=== PATIENT | male | born 1980 | race Two or more races ===

== ENCOUNTER 2017-02-03 11:30 | Emergency (ER) | payer SELFPAY ==
[2017-02-03 11:35] VITALS: BP 141/71; TEMP 98; BMI 25.8
--- NOTE | 2017-02-03 12:29 | PDOC ---
History of Present Illness - General Chief Complaint: Respiratory Stated Complaint: FEVER, CHILLS Time Seen by Provider: 02/03/17 11:47 History Source: Patient - History of Present Illness Timing/Duration: reports: other Associated Symptoms: reports: fever/chills, headache, muscle aches. denies: chest pain/soreness, cough, earache, facial pain, lightheadedness, nasal congestion, nasal drainage, shortness of breath, sore throat Past History - Past Medical History Allergies/Adverse Reactions: Allergies Allergy/AdvReac Type Severity Reaction Status Date / Time No Known Allergies Allergy Verified 02/03/17 11:31 Home Medications: Ambulatory Orders NK [No Known Home Medication] 02/03/17 Other medical history: NONE - Psycho/Social/Smoking Cessation Hx Anxiety: No Suicidal Ideation: No Smoking History: Never smoked Have you smoked in the past 12 months: Yes Number of Cigarettes Smoked Daily: 8 Information on smoking cessation initiated: Yes Hx Alcohol Use: No Drug/Substance Use Hx: No Substance Use Type: Marijuana Review of Systems - Review of Systems Constitutional: Yes: Fever HEENTM: No: Ear Pain, Throat Pain Respiratory: No: Cough, Shortness of Breath Cardiac (ROS): No: Chest Pain ABD/GI: No: Diarrhea, Nausea, Vomiting *Physical Exam - Vital Signs Last Vital Signs Temp Pulse Resp BP Pulse Ox 98.0 F 116 H 18 141/71 100 02/03/17 11:33 02/03/17 11:33 02/03/17 11:33 02/03/17 11:33 02/03/17 11:33 - Physical Exam General Appearance: Yes: Appropriately Dressed. No: Apparent Distress HEENT: positive: Normal ENT Inspection, Normal Voice, TMs Normal, Pharynx Normal. negative: Scleral Icterus (R), Scleral Icterus (L) Neck: positive: Supple Respiratory/Chest: positive: Lungs Clear, Normal Breath Sounds. negative: Respiratory Distress Cardiovascular: positive: Regular Rate, S1, S2 Gastrointestinal/Abdominal: positive: Soft. negative: Tender Integumentary: positive: Dry, Warm Neurologic: positive: Fully Oriented, Alert, Normal Mood/Affect Medical Decision Making - Medical Decision Making 02/03/17 12:25 36-year-old male, no significant history, here with fever, malaise and body aches 3 days. States highest temperature 101. Has been taking Tylenol with some improvement. Denies sore throat, cough, ear pain, nausea, vomiting or diarrhea. No sick contacts or recent travel See exam Viral syndrome Well appearing but tachy at 116 at triage, improve to 100 on rpt without intervention, rest of exam unremarkable -dc w/ supportive tx 02/03/17 12:28 02/03/17 12:55 *DC/Admit/Observation/Transfer Diagnosis at time of Disposition: Viral syndrome - Discharge Dispostion Disposition: HOME Condition at time of disposition: Good - Patient Instructions Printed Discharge Instructions: DI for Viral Syndrome Additional Instructions: Your exam did not show any infection at this time. Your symptoms are most likely viral. Rest, maintain adequate hydration and take Motrin or Tylenol as needed for pain and/or fever Return for worsening of symptoms - Post Discharge Activity Work/School Note: Back to Work
[2017-02-03 12:37] VITALS: PULSE 100
== END 2017-02-03 12:45 | disposition home or self-care (01) ==
LOC: JERFT 11:30
DX: B34.9 Viral infection, unspecified (principal)
CPT/HCPCS: 99281-25

== ENCOUNTER 2017-04-11 01:34 | Emergency (ER) | payer SELFPAY ==
[2017-04-11 01:49] VITALS: BP 141/84; PULSE 98; TEMP 97.1; BMI 25.8
[2017-04-11] MEDS ORDERED: diazePAM 5 MG TABLET PO ONE (01:53)
[2017-04-11] MEDS ORDERED: KETOROLAC TROMETHAMINE 60 MG/2 ML VIAL IM ONE (01:53)
--- NOTE | 2017-04-11 01:58 | PDOC ---
History of Present Illness - General Chief Complaint: Pain, Acute Stated Complaint: PAIN IN NECK Time Seen by Provider: 04/11/17 01:39 - History of Present Illness Initial Comments: 04/11/17 01:52 CHIEF COMPLAINT: neck pain HISTORY OF PRESENT ILLNESS: 36 yo M with no PMH presents to ED with neck pain x "a couple days." Patient reports that he woke up the other day with "a stiff neck, I think I slept on it wrong or something" and it has not improved. He denies any back pain and states that it is mostly on the left side of his neck and L shoulder. No recent travel or sick contacts. PAST MEDICAL HISTORY: Denies past medical history FAMILY HISTORY: Denies SOCIAL HISTORY: Current smoker, 5 cigarettes daily. Marijuana use "once every 3 days." Alcohol use: 1-2 beers "every 3 days or so." SURGICAL HISTORY: Denies ALLERGIES: No known drug allergies REVIEW OF SYSTEMS General/Constitutional: Denies fever or chills. HEENT: Denies change in vision. Denies ear pain or discharge. Cardiovascular: Denies chest pain or shortness of breath. Musculoskeletal: Left neck and shoulder pain. Denies neck pain. Skin and breasts: Denies rash or easy bruising. Neurologic: Denies headache, vertigo, loss of consciousness, or loss of sensation. PHYSICAL EXAM General Appearance: Well-appearing, appropriately dressed. No apparent distress. HEENT: EOMI, PERRLA, normal ENT inspection, normal voice, TMs normal, pharynx normal. No conjunctival pallor. No photophobia, scleral icterus. Neck: Tenderness to left neck and shoulder, full ROM. Supple. Trachea midline. No rigidity, carotid bruit, stridor, lymphadenopathy, or thyromegaly. Respiratory/Chest: Lungs CTAB. Cardiovascular: RRR. S1, S2. Vascular Pulses: Dorsalis-Pedis (R): 2+, Dorsalis-Pedis (L): 2+ Gastrointestinal/Abdominal: Normal bowel sounds. Abdomen soft, non-distended. No tenderness or rebound tenderness. No organomegaly, pulsatile mass, guarding , hernia, hepatomegaly, splenomegaly. Lymphatic: No adenopathy, tenderness. Musculoskeletal/Extremities: Normal inspection. FROM of all extremities, normal capillary refill. Pelvis Stable. No CVA tenderness. No tenderness to extremities, pedal edema, swelling, erythema or deformity. Integumentary: Appropriate color, dry, warm. 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 Fully oriented, alert. Appropriate mood/affect. Motor strength 5/5. No appreciable EOM palsy, facial droop or sensory deficit. 04/11/17 01:54 04/11/17 02:28 Past History - Past Medical History Allergies/Adverse Reactions: Allergies Allergy/AdvReac Type Severity Reaction Status Date / Time No Known Allergies Allergy Verified 04/11/17 01:47 Home Medications: Ambulatory Orders Diazepam [Valium] 5 mg PO HS PRN #5 tablet MDD 1 04/11/17 Naproxen 250 mg PO BID #14 tablet 04/11/17 - Immunization History Immunization Up to Date: Yes - Psycho/Social/Smoking Cessation Hx Anxiety: No Suicidal Ideation: No Smoking History: Current every day smoker Have you smoked in the past 12 months: Yes Number of Cigarettes Smoked Daily: 5 Information on smoking cessation initiated: No Hx Alcohol Use: No Drug/Substance Use Hx: No Substance Use Type: None *Physical Exam - Vital Signs Last Vital Signs Temp Pulse Resp BP Pulse Ox 97.1 F L 98 H 20 141/84 99 04/11/17 01:47 04/11/17 01:47 04/11/17 01:47 04/11/17 01:47 04/11/17 01:47 Medical Decision Making - Medical Decision Making 04/11/17 01:56 36 yo M with no PMH presents to ED with neck pain x "a couple days." Reproducible tenderness to L shoulder. Likely MSK in nature. -60 mg IM Toradol -5 mg Valium - patient states that a friend drove him here so he will not be driving home *DC/Admit/Observation/Transfer Diagnosis at time of Disposition: Muscle spasms of neck - Discharge Dispostion Disposition: HOME Condition at time of disposition: Stable Admit: No - Prescriptions Prescriptions: Naproxen 250 mg PO BID #14 tablet Diazepam [Valium] 5 mg PO HS PRN #5 tablet MDD 1 PRN Reason: Muscle Spasms - Referrals Referrals: Imtiaz Matson MD [Staff Physician] - - Patient Instructions Printed Discharge Instructions: DI for Neck Pain Additional Instructions: Please take medications as prescribed. If your pain continues past 3-4 days, please follow up with orthopedics. If you experience any severe headache, palpitations, chest pain, blurry vision, loss of sensation to your extremities, difficulty speaking/swallowing/walking, or any new or worsening symptoms, please return to the ER. - Post Discharge Activity Work/School Note: Back to Work
[2017-04-11] MEDS ORDERED: diazePAM 5 MG TABLET ONE (02:00)
[2017-04-11] MEDS ORDERED: KETOROLAC TROMETHAMINE 60 MG/2 ML VIAL ONE (02:00)
--- NOTE | 2017-04-11 02:33 | PDOC ---
*Physical Exam - Vital Signs Last Vital Signs Temp Pulse Resp BP Pulse Ox 97.1 F L 98 H 20 141/84 99 04/11/17 01:47 04/11/17 01:47 04/11/17 01:47 04/11/17 01:47 04/11/17 01:47 ED Treatment Course - Medications Given in the ED: ED Medications Discontinued Medications Generic Name Dose Route Start Last Admin Trade Name Freq PRN Reason Stop Dose Admin Diazepam 5 mg 04/11/17 01:53 04/11/17 02:03 Valium - PO 04/11/17 01:54 5 mg ONCE ONE Administration Ketorolac Tromethamine 60 mg 04/11/17 01:53 04/11/17 02:03 Toradol Injection - IM 04/11/17 01:54 60 mg ONCE ONE Administration Medical Decision Making - Medical Decision Making 04/11/17 02:32 agree with care from ANTHONY Cervantes *DC/Admit/Observation/Transfer Diagnosis at time of Disposition: Muscle spasms of neck - Discharge Dispostion Disposition: HOME Condition at time of disposition: Stable - Prescriptions Prescriptions: Naproxen 250 mg PO BID #14 tablet Diazepam [Valium] 5 mg PO HS PRN #5 tablet MDD 1 PRN Reason: Muscle Spasms - Referrals Referrals: Imtiaz Matson MD [Staff Physician] - - Patient Instructions Printed Discharge Instructions: DI for Neck Pain Additional Instructions: Please take medications as prescribed. If your pain continues past 3-4 days, please follow up with orthopedics. If you experience any severe headache, palpitations, chest pain, blurry vision, loss of sensation to your extremities, difficulty speaking/swallowing/walking, or any new or worsening symptoms, please return to the ER. - Post Discharge Activity Work/School Note: Back to Work
== END 2017-04-11 02:36 | disposition home or self-care (01) ==
LOC: JER 01:34
PROC: 3E0233Z Introduction of Anti-inflammatory into Muscle, Percutaneous Approach (ICD-10-PCS; principal; 2017-04-11)
DX: M62.838 Other muscle spasm (principal)
CPT/HCPCS: 99283-25

== ENCOUNTER 2017-10-29 01:13 | Emergency (ER) | payer OTHER ==
[2017-10-29 01:38] VITALS: BP 142/89; PULSE 105; TEMP 98.1; BMI 26.6
[2017-10-29] MEDS ORDERED: METHOCARBAMOL 500 MG TABLET PO ONE (02:29)
[2017-10-29] MEDS ORDERED: IBUPROFEN 400 MG TABLET (FP) PO ONE ×2 (02:29→02:40)
--- NOTE | 2017-10-29 02:29 | PDOC ---
History of Present Illness - General Exam Limitations: No Limitations - History of Present Illness Initial Comments: 10/29/17 02:29 The patient is a 37 year old male with history of lower back pain who presents to the ED complaining of approximately 3 days of lower back pain. He states he hurt himself on Friday prior to the onset of his pain. His pain is worse with movement and radiates down the right lower extremity. Symptoms are consistent with prior episodes of lower back pain. He has been taking Advil with minimal relief. No numbness or tingling. No bladder or bowel incontinence. <Marlene Celaya - Last Filed: 10/29/17 02:29> - General History Source: Patient <Logan Garcia - Last Filed: 10/29/17 02:35> - General Chief Complaint: Back Pain Stated Complaint: BACK PAIN Time Seen by Provider: 10/29/17 02:26 Past History <Marlene Celaya - Last Filed: 10/29/17 02:29> - Past Medical History COPD: No Other medical history: Pt denies - Immunization History Immunization Up to Date: Yes - Suicide/Smoking/Psychosocial Hx Smoking History: Current every day smoker Have you smoked in the past 12 months: Yes Number of Cigarettes Smoked Daily: 6 Information on smoking cessation initiated: No Hx Alcohol Use: No Drug/Substance Use Hx: Yes (Marijuana) Substance Use Type: None <RadhaLogan - Last Filed: 10/29/17 02:35> - Past Medical History Allergies/Adverse Reactions: Allergies Allergy/AdvReac Type Severity Reaction Status Date / Time No Known Allergies Allergy Verified 10/29/17 01:26 Home Medications: Ambulatory Orders Diazepam [Valium] 5 mg PO HS PRN #5 tablet MDD 1 04/11/17 Naproxen 250 mg PO BID #14 tablet 04/11/17 Ibuprofen 800 mg PO TID #30 tablet 10/29/17 Methocarbamol [Robaxin -] 1,000 mg PO TID #60 tablet 10/29/17 Review of Systems - Review of Systems Able to Perform ROS?: Yes Comments:: 10/29/17 02:31 GENERAL/CONSTITUTIONAL: No fever or chills. No weakness. HEAD, EYES, EARS, NOSE AND THROAT: No change in vision. No ear pain or discharge. No sore throat. CARDIOVASCULAR: No chest pain or shortness of breath. RESPIRATORY: No cough, wheezing, or hemoptysis. GASTROINTESTINAL: No nausea, vomiting, diarrhea or constipation. GENITOURINARY: No dysuria, frequency, or change in urination. MUSCULOSKELETAL: +lower back pain. No joint or muscle swelling or pain. No neck pain. SKIN: No rash NEUROLOGIC: No headache, vertigo, loss of consciousness, or change in strength/ sensation. ENDOCRINE: No increased thirst. No abnormal weight change. HEMATOLOGIC/LYMPHATIC: No anemia, easy bleeding, or history of blood clots. ALLERGIC/IMMUNOLOGIC: No hives or skin allergy. <Marlene Celaya - Last Filed: 10/29/17 02:29> *Physical Exam - Vital Signs Last Vital Signs Temp Pulse Resp BP Pulse Ox 98.1 F 105 H 20 142/89 100 10/29/17 01:27 10/29/17 01:27 10/29/17 01:27 10/29/17 01:27 10/29/17 01:27 - Physical Exam Comments: 10/29/17 02:32 GENERAL: Awake, alert, and fully oriented, in no acute distress HEAD: No signs of trauma EYES: PERRLA, EOMI, sclera anicteric, conjunctiva clear ENT: Auricles normal inspection, nares patent. Moist mucosa NECK: Normal ROM, supple, no JVD, or masses LUNGS: Breath sounds equal, clear to auscultation bilaterally. No wheezes, and no crackles HEART: Regular rate and rhythm, normal S1 and S2, no murmurs, rubs or gallops ABDOMEN: Soft, nontender, normoactive bowel sounds. No guarding, no rebound. No masses BACK: +Right paraspinal lumbosacral tenderness to palpation. No midline spinal tenderness. No deformity or stepoff. EXTREMITIES: Normal range of motion, no edema. No clubbing or cyanosis. No cords, erythema, or tenderness NEUROLOGICAL: Alert and oriented x 3. Moves all extremities. Face is symmetric. SKIN: Warm, Dry, normal turgor, no rashes or lesions noted. <Marlene Celaya - Last Filed: 10/29/17 02:29> - Vital Signs Last Vital Signs Temp Pulse Resp BP Pulse Ox 98.1 F 105 H 20 142/89 100 10/29/17 01:27 10/29/17 01:27 10/29/17 01:27 10/29/17 01:27 10/29/17 01:27 <Logan Garcia - Last Filed: 10/29/17 02:35> Medical Decision Making - Medical Decision Making 10/29/17 02:34 Dr. Garcia: The scribe's documentation has been prepared under my direction and personally reviewed by me in its entirery. I confirm that the note above accurately reflects all work, treatment, procedures, and medical decision making performed by me. <Logan Garcia - Last Filed: 10/29/17 02:35> *DC/Admit/Observation/Transfer - Attestations Scribe Attestion: 10/29/17 02:33 Documentation prepared by Marlene Celaya, acting as medical director/head team physician for Logan Garcia DO. <Marlene Celaya - Last Filed: 10/29/17 02:29> - Discharge Dispostion Admit: No <Logan Garcia - Last Filed: 10/29/17 02:35> Diagnosis at time of Disposition: Low back pain Qualifiers: Chronicity: unspecified Back pain laterality: right Sciatica presence: unspecified whether sciatica present Qualified Code(s): M54.5 - Low back pain - Discharge Dispostion Disposition: HOME Condition at time of disposition: Stable - Prescriptions Prescriptions: Ibuprofen 800 mg PO TID #30 tablet Methocarbamol [Robaxin -] 1,000 mg PO TID #60 tablet - Referrals Referrals: Wilfredo Gross MD [Staff Physician] - - Patient Instructions Printed Discharge Instructions: DI for Low Back Pain - Post Discharge Activity Forms/Work/School Notes: Back to Work
[2017-10-29] MEDS ORDERED: METHOCARBAMOL 500 MG TABLET ONE (02:40)
== END 2017-10-29 02:45 | disposition home or self-care (01) ==
LOC: JER 01:13
DX: M54.5 Low back pain (principal); F17.210 Nicotine dependence, cigarettes, uncomplicated
CPT/HCPCS: 99281-25

== ENCOUNTER 2018-03-07 08:16 | Emergency (ER) | payer OTHER ==
[2018-03-07 08:22] VITALS: BP 139/85; BMI 25.8
[2018-03-07] MEDS ORDERED: ACETAMINOPHEN 500 MG TABLET (FP) PO ONE (08:38)
[2018-03-07] MEDS ORDERED: ACETAMINOPHEN 500 MG TABLET (FP) ONE (08:41)
--- NOTE | 2018-03-07 08:45 | PDOC ---
History of Present Illness - General Chief Complaint: Sore Throat Stated Complaint: FEVER, THROAT PAIN Time Seen by Provider: 03/07/18 08:25 History Source: Patient Exam Limitations: Clinical Condition - History of Present Illness Initial Comments: 03/07/18 08:39 Patient with no significant PMHx present with complains of 3 days h/o sore throat and fever. report no other complains. report just treated for strep throat a week ago. Denies N/V, abdominal pains, diarrhea, dizziness, rash Timing/Duration: other (3) Severity: moderate Modifying Factors: worse with: other (eating and swallow ) Associated Symptoms: reports: fever/chills. denies: chest pain, cough, diaphoresis, headaches, loss of appetite, malaise, nausea/vomiting, rash, seizure, shortness of breath, syncope, weakness, other Aspirin Received prior to arrival: Yes: no aspirin today Past History - Past Medical History Allergies/Adverse Reactions: Allergies Allergy/AdvReac Type Severity Reaction Status Date / Time No Known Allergies Allergy Verified 03/07/18 08:20 Home Medications: Ambulatory Orders Amox-Tr/K Cl [Augmentin - 875Mg Tablet] 1 tab PO BID #14 tablet 03/07/18 Ibuprofen 600 mg PO PRN PRN #20 tablet 03/07/18 COPD: No - Immunization History Immunization Up to Date: Yes - Suicide/Smoking/Psychosocial Hx Smoking History: Current every day smoker Have you smoked in the past 12 months: Yes Number of Cigarettes Smoked Daily: 10 Information on smoking cessation initiated: No Hx Alcohol Use: No Drug/Substance Use Hx: No Substance Use Type: None Review of Systems - Review of Systems Is the patient limited Belarusian proficient: No Constitutional: Yes: Fever. No: Chills, Diaphoresis, Loss of Appetite, Malaise , Night Sweats, Weakness, Weight Stable, Unintentional Wgt. Loss, Unexplained wgt Loss, Other HEENTM: Yes: Throat Pain, Difficulty Swallowing. No: Eye Pain, Blurred Vision, Tearing, Recent change in vision, Double Vision, Cataracts, Ear Pain, Ocular Prothesis, Ear Discharge, Nose Pain, Nose Congestion, Tinnitus, Nose Bleeding, Hearing Loss, Throat Swelling, Mouth Pain, Dental Problems, Mouth Swelling, Other Respiratory: No: Cough, Orthopnea, Shortness of Breath, SOB with Exertion, SOB at Rest, Stridor, Wheezing, Productive cough, Hemoptysis, Other Cardiac (ROS): No: Chest Pain, Edema, Irregular Heart Rate, Lightheadedness, Palpitations, Syncope, Chest Tightness, Other ABD/GI: No: Abdominal Distended, Abd. Pain w/ defecation, Blood Streaked Bowels , Constipated, Diarrhea, Difficulty Swallowing, Nausea, Poor Appetite, Poor Fluid Intake, Rectal Bleeding, Vomiting, Indigestion, Abdominal cramping, Tarry Stools, Other : No: Burning, Dysuria, Discharge, Frequency, Flank Pain, Hematuria, Incontinence, Pain, Urgency, Testicular Mass, Testicular Swelling, Lesions, Testicular Pain, Other Musculoskeletal: No: Back Pain, Gout, Joint Pain, Joint Swelling, Muscle Pain, Muscle Weakness, Neck Pain, Joint Stiffness, Other Integumentary: No: Bruising, Change in Color, Change in Hair/Nails, Dryness, Erythema, Flushing, Lesions, Lumps, Pallor, Pruritus, Rash, Sweating, Other Neurological: No: Headache, Numbness, Paresthesia, Pre-Existing Deficit, Seizure , Tingling, Tremors, Weakness, Unsteady Gait, Ataxia, Dizziness, Other Psychiatric: No: Anxiety, Depression, Frequent Crying, Stressors, Sleep Pattern Change, Emotional Problems, Mood Swings, Change in Appetite, Other Endocrine: No: Excessive Sweating, Flushing, Intolerance to Cold, Intolerance to Heat, Increased Hunger, Increased Thirst, Increased Urine, Unexplained Weight Gain, Unexplained Weight Loss, Change in Weight, Other Hematologic/Lymphatic: No: Anemia, Blood Clots, Easy Bleeding, Easy Bruising, Bleeding Diathesis, Lymph Node Abnormalities, Swollen Glands, Other *Physical Exam - Vital Signs Last Vital Signs Temp Pulse Resp BP Pulse Ox 103 F H 113 H 20 139/85 99 03/07/18 08:17 03/07/18 08:17 03/07/18 08:17 03/07/18 08:17 03/07/18 08:17 - Physical Exam General Appearance: Yes: Nourished, Appropriately Dressed. No: Apparent Distress HEENT: positive: EOMI, MAYRA, Normal Voice, Pharyngeal Erythema (moderate), Tonsillar Erythema (mild). negative: TMs Normal, Tonsillar Exudate, Nasal Congestion, Sinus Tenderness, Hearing Decreased, TM Bulging, TM Dull, TM Erythema Neck: positive: Trachea midline, Supple. negative: Tender Respiratory/Chest: positive: Lungs Clear, Normal Breath Sounds. negative: Chest Tender, Respiratory Distress, Accessory Muscle Use Cardiovascular: positive: Regular Rhythm, Regular Rate, S1, S2 Musculoskeletal: positive: Normal Inspection Extremity: positive: Normal Inspection Integumentary: positive: Normal Color. negative: Bruising Neurologic: positive: Fully Oriented, Alert, Normal Mood/Affect, Normal Response Medical Decision Making - Medical Decision Making 03/07/18 08:43 Patient with sore throat and fever and pre-exposure to strep. symptoms likely strep pharyngitis. Tylenol 1g PO ordered for fever. rapid strep and throat cx ordered 03/07/18 09:10 rapid strep neg. throat cx still pending. will treat emperically given pre- exposure to strep with ENT follow-up *DC/Admit/Observation/Transfer Diagnosis at time of Disposition: Pharyngitis Qualifiers: Pharyngitis/tonsillitis etiology: other specified organisms Qualified Code(s): J02.8 - Acute pharyngitis due to other specified organisms - Discharge Dispostion Disposition: HOME Condition at time of disposition: Good Decision to Admit order: No - Prescriptions Prescriptions: Amox-Tr/K Cl [Augmentin - 875Mg Tablet] 1 tab PO BID #14 tablet Ibuprofen 600 mg PO PRN PRN #20 tablet PRN Reason: Pain - Referrals Referrals: Volodymyr Smyth MD [Staff Physician] - - Patient Instructions Printed Discharge Instructions: Sore Throat Additional Instructions: Take medication as prescribed. follow-up with ENT if symptoms persist for more that 5 days - Post Discharge Activity Forms/Work/School Notes: Back to Work
[2018-03-07 09:26] VITALS: PULSE 96; TEMP 101.1
== END 2018-03-07 09:26 | disposition home or self-care (01) ==
LOC: JERFT 08:16 → JER 08:16 → JERFT 09:26
DX: J02.0 Streptococcal pharyngitis (principal); B95.4 Other streptococcus as the cause of diseases classified elsewhere; F17.210 Nicotine dependence, cigarettes, uncomplicated
CPT/HCPCS: 87070; 87077; 87430; 99281-25

== ENCOUNTER 2018-05-24 17:05 | Emergency (ER) | payer OTHER ==
[2018-05-24 17:25] VITALS: BP 131/97; PULSE 121; TEMP 99.7; BMI 25.1
[2018-05-24] MEDS ORDERED: DEXAMETHASONE LIQUID 0.5 MG/5 ML 240 ML BULK BOTTLE PO ONE (18:02)
[2018-05-24] MEDS ORDERED: KETOROLAC TROMETHAMINE 30 MG/1 ML VIAL IM ONE (18:02)
[2018-05-24] MEDS ORDERED: DEXAMETHASONE SOD PHOSPHATE 10 MG/1 ML VIAL ONE (18:10)
[2018-05-24] MEDS ORDERED: KETOROLAC TROMETHAMINE 30 MG/1 ML VIAL ONE (18:10)
--- NOTE | 2018-05-24 18:15 | PDOC ---
History of Present Illness - General Chief Complaint: Sore Throat Stated Complaint: THROAT PAIN Time Seen by Provider: 05/24/18 17:35 History Source: Patient, Old Records Exam Limitations: No Limitations - History of Present Illness Initial Comments: 05/24/18 18:01 HISTORY OF PRESENT ILLNESS: So 38-year-old male with past medical history of repeated strep throats presents emergency Department with right-sided throat pain for 3 days. Patient reports subjective fevers and chills. Patient states pain has progressively gotten worse over the 3 days and now rates pain as "untolerable." Patient denies change in voice, difficult breathing, difficulty swallowing, drooling, shortness of breath, headaches, nausea, vomiting. No recent travel or sick contacts. PAST MEDICAL HISTORY: frequent strep throats SURGICAL HISTORY: Denies ALLERGIES: No known drug allergies REVIEW OF SYSTEMS General/Constitutional: +fever or chills. Denies weakness, weight change. HEENT: Denies change in vision. Denies ear pain or discharge. +sore throat. Cardiovascular: Denies chest pain or shortness of breath. Respiratory: Denies cough, wheezing, or hemoptysis. Gastrointestinal: Denies nausea, vomiting, diarrhea or constipation. Denies rectal bleeding. Genitourinary: Denies dysuria, frequency, or change in urination. Musculoskeletal: Denies joint or muscle swelling or pain. Denies neck or back pain. Skin and breasts: Denies rash or easy bruising. Neurologic: Denies headache, vertigo, loss of consciousness, or loss of sensation. Psychiatric: Denies depression or anxiety. Endocrine: Denies increased thirst. Denies abnormal weight change. Hematologic/Lymphatic: Denies anemia, easy bleeding, or history of blood clots. Allergic/Immunologic: Denies hives or skin allergy. Denies latex allergy. PHYSICAL EXAM General Appearance: Well-appearing, appropriately dressed. No apparent distress , no intoxication. HEENT: EOMI, PERRLA, normal voice, TMs normal. No conjunctival pallor. No photophobia, scleral icterus. Tonsillar and pharyngeal erythema present. +3 tonsils on right side. No obvious abscess present Neck: Supple. Trachea midline. No tenderness, rigidity, carotid bruit, stridor , or thyromegaly. Right-sided tender anterior cervical lymphadenopathy Respiratory/Chest: Lungs CTAB. No shortness of breath, chest tenderness, respiratory distress, accessory muscle use. No crackles, rales, rhonchi, stridor , wheezing, dullness Cardiovascular: RRR. S1, S2. No JVD, murmur, bradycardia, tachycardia. Vascular Pulses: Dorsalis-Pedis (R): 2+, Dorsalis-Pedis (L): 2+ Gastrointestinal/Abdominal: Normal bowel sounds. Abdomen soft, non-distended. No tenderness or rebound tenderness. No organomegaly, pulsatile mass, guarding, hernia, hepatomegaly, splenomegaly. Lymphatic: No adenopathy, tenderness. Musculoskeletal/Extremities: Normal inspection. FROM of all extremities, normal capillary refill. Pelvis Stable. No CVA tenderness. No tenderness to extremities, pedal edema, swelling, erythema or deformity. Integumentary: Appropriate color, dry, warm. 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 Fully oriented, alert. Appropriate mood/affect. Motor strength 5/5. No appreciable EOM palsy, facial droop or sensory deficit. Past History - Past Medical History Allergies/Adverse Reactions: Allergies Allergy/AdvReac Type Severity Reaction Status Date / Time No Known Allergies Allergy Verified 05/24/18 17:25 Home Medications: Ambulatory Orders Amoxicillin - [Amoxicillin 500mg Capsule -] 500 mg PO BID #20 capsule 05/24/18 Nabumetone 750 mg PO ASDIR 05/24/18 Tizanidine HCl 4 mg PO TID 05/24/18 COPD: No - Immunization History Immunization Up to Date: Yes - Suicide/Smoking/Psychosocial Hx Smoking History: Current every day smoker Have you smoked in the past 12 months: Yes Number of Cigarettes Smoked Daily: 6 Information on smoking cessation initiated: No Hx Alcohol Use: No Drug/Substance Use Hx: No Substance Use Type: None *Physical Exam - Vital Signs Last Vital Signs Temp Pulse Resp BP Pulse Ox 99.7 F H 121 H 20 131/97 98 05/24/18 17:22 05/24/18 17:22 05/24/18 17:22 05/24/18 17:22 05/24/18 17:22 Medical Decision Making - Medical Decision Making 05/24/18 18:15 A/P: 38-year-old male history of repeated strep throat here with sore throat Oropharynx erythematous with right tonsil +3 Slight uvular deviation noted No trismus present Tender anterior cervical lymphadenopathy on the right side Halitosis Physical exam is consistent with strep throat versus peritonsillar abscess. Decadron 10mg now Toradol 30mg now Rapid strep Case discussed with Dr. Ramirez who agrees with outpatient antibiotics with ENT follow-up. *DC/Admit/Observation/Transfer Diagnosis at time of Disposition: Tonsillitis - Discharge Dispostion Condition at time of disposition: Fair Decision to Admit order: No - Prescriptions Prescriptions: Amoxicillin - [Amoxicillin 500mg Capsule -] 500 mg PO BID #20 capsule - Referrals Referrals: Volodymyr Smyth MD [Staff Physician] - - Patient Instructions Additional Instructions: Take amoxicillin as prescribed. Salt water garggles. Throw away your toothbrush in 3 days and start using a new toothbrush. No sharing of drinks, utensils or toothbrushes. 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 Return to ED for worsening fevers, worsening sore throat, chest pain, shortness of breath or any other concerns. - Post Discharge Activity
== END 2018-05-24 18:48 | disposition home or self-care (01) ==
LOC: JERFT 17:05
PROC: 3E0233Z Introduction of Anti-inflammatory into Muscle, Percutaneous Approach (ICD-10-PCS; principal; 2018-05-24)
DX: J03.90 Acute tonsillitis, unspecified (principal)
CPT/HCPCS: 87070; 87430; 96372; 99281-25

== ENCOUNTER 2019-04-08 20:59 | Emergency (ER) | payer OTHER | END 2019-04-09 00:15 | disposition home or self-care (01) | LOC: JER 04-09 00:15 ==